=== PATIENT | male | born 1995 | race Two or more races ===

== ENCOUNTER 2018-03-25 10:41 | Emergency (ER) | payer SELFPAY ==
--- NOTE | 2018-03-25 11:00 | ER Report ---
History and Physical Time Seen By MD: 10:59 Hx. of Stated Complaint: PT REPORTS BILATERAL FLANK PAIN AND PAIN WITH URINATION THAT STARTED YESTERDAY HPI/ROS Chief Complaint: "back pain" HPI: 22-year-old Hungarian speaking male presents to the emergency department with complaints of back pain. Although the patient is the primary historian his brother translates for him. He reports the pain started yesterday and is a constant, stabbing pain. The patient reports it is made worse when he bares down. Reports that he stooled last this morning and voided a few minutes ago. He reports that he is sexually active but uses condoms every time. The patient states, he drank an old bottle of water that he found on the ground while working and wonders if it was contaminated. He reports associated nausea and states, he vomited once this morning. Last night he experienced feverish symptoms. He reports no changes in his diet but he has no appetite. No treatments tried. ROS: Constitutional: reports symptoms of fever and chills Head: denies headache ENMT: denies sinus congestion, denies sore throat Respiratory: denies difficulty breathing CV: denies chest pain GI: reports left upper quadrant pain, reports BL flank pain : denies pain with urination Allergies: Coded Allergies: No Known Drug Allergies (Unverified , 03/25/18) Home Meds Active Scripts Hydrocodone Bit/Acetaminophen (HYDROCODON-ACETAMINOPHEN 5-325) 1 Each Tablet, 1 EACH PO Q4-6H Y for PAIN, #8 TAB Prov:MELL VILLANUEVA 03/25/18 Ciprofloxacin Hcl (CIPROFLOXACIN HCL) 500 Mg Tablet, 500 MG PO Q12H for 7 Days, #14 TAB Prov:MELL VILLANUEVA 03/25/18 Past Medical/Surgical History Patient has no pertinent past medical history. Reviewed Nurses Notes: Yes Constitutional Vital Sign - Last 24 Hours 03/25/18 03/25/18 03/25/18 03/25/18 10:42 10:49 11:00 11:30 Temp 97.6 Pulse 65 Resp 16 B/P (MAP) 140/108 140/108 (119) 127/90 (102) 127/78 (94) Pulse Ox 97 O2 Delivery Room Air 03/25/18 03/25/18 03/25/18 03/25/18 11:49 12:00 12:11 12:30 Pulse 52 B/P (MAP) 122/76 (91) 131/77 (95) 114/83 (93) Pulse Ox 96 03/25/18 03/25/18 03/25/18 03/25/18 12:41 12:46 13:00 13:01 Pulse 72 46 57 B/P (MAP) 125/75 (92) Pulse Ox 90 96 99 03/25/18 13:06 Pulse 50 Pulse Ox 97 Intake and Output 03/25/18 03/25/18 03/26/18 14:59 22:59 06:59 Intake Total 1100 ml Balance 1100 ml Physical Exam General: 22-year-old male in no acute distress with pain and facial grimacing Head: normocephalic, atraumatic, TMs BL serge inman, ENMT: pupils round reactive to light and accommodation, no rhinorrhea, mucus membranes pink and moist Respiratory: CTA BL CV: Clear S1 S2, no murmurs : BL CVA tenderness GI: normoactive BS x4, left upper quadrant pain Musculoskeletal: free full ROM of all extremities Neuro: interactive, alert and oriented Differential Diagnoses Considered: kidney stone, UTI, STI, appendicitis Medical Decision Making Data Points Result Diagram: 03/25/18 1055 03/25/18 1055 Laboratory Hematology Test 03/25/18 10:41 03/25/18 10:55 Urine Color Straw Urine Clarity Clear Urine pH 6.0 pH (4.8-9.5) Urine Specific [place] 1.004 Urine Protein Negative mg/dL (NEGATIVE) Urine Glucose (UA) Negative mg/dL (NEGATIVE) Urine Ketones Negative mg/dL (NEGATIVE) Urine Blood Small (NEGATIVE) Urine Nitrite Negative (NEGATIVE) Urine Bilirubin Negative (NEGATIVE) Urine Urobilinogen Negative mg/dL (0.2-1.9) Urine Leukocyte Esterase Negative (NEGATIVE) Urine RBC <1 /HPF (0-2/HPF) Urine WBC <1 /HPF (0-5/HPF) Urine Squamous Epithelial Cells None /LPF (</=FEW) Urine Bacteria Few /HPF (NONE-FEW) Urine Mucus None /HPF (NONE-FEW) Red Blood Count 5.11 M/uL (4.00-5.60) Mean Corpuscular Volume 92.1 fL (80.0-96.0) Mean Corpuscular Hemoglobin 31.3 pg (26.0-33.0) Mean Corpuscular Hemoglobin Concent 34.0 g/dL (32.0-36.0) Red Cell Distribution Width 13.4 % (11.5-14.5) Mean Platelet Volume 9.2 fL (7.2-11.1) Neutrophils (%) (Auto) 60.0 % (39.4-72.5) Lymphocytes (%) (Auto) 26.4 % (17.6-49.6) Monocytes (%) (Auto) 11.4 % (4.1-12.4) Eosinophils (%) (Auto) 0.4 % (0.4-6.7) Basophils (%) (Auto) 1.8 % (0.3-1.4) Nucleated RBC Relative Count (auto) 0.0 /100WBC Neutrophils # (Auto) 3.9 K/uL (2.0-7.4) Lymphocytes # (Auto) 1.7 K/uL (1.3-3.6) Monocytes # (Auto) 0.7 K/uL (0.3-1.0) Eosinophils # (Auto) 0.0 K/uL (0.0-0.5) Basophils # (Auto) 0.1 K/uL (0.0-0.1) Nucleated RBC Absolute Count (auto) 0.00 K/uL Sodium Level 144 mmol/L (137-145) Potassium Level 3.9 mmol/L (3.5-5.0) Chloride Level 104 mmol/L (98-107) Carbon Dioxide Level 27 mmol/L (22-30) Blood Urea Nitrogen 18 mg/dl (9-21) Creatinine 1.00 mg/dl (0.66-1.25) Glomerular Filtration Rate Calc > 60.0 Random Glucose 98 mg/dl (75-110) Calcium Level 9.1 mg/dl (8.4-10.2) Total Bilirubin 0.9 mg/dl (0.2-1.3) Aspartate Amino Transf (AST/SGOT) 25 U/L (0-35) Alanine Aminotransferase (ALT/SGPT) 23 U/L (0-56) Alkaline Phosphatase 118 U/L (0-126) Total Protein 8.1 g/dl (6.3-8.2) Albumin 4.4 g/dl (3.5-5.0) Amylase Level 99 U/L (0-110) Lipase 61 U/L (23-300) Chemistry Test 03/25/18 10:41 03/25/18 10:55 Urine Color Straw Urine Clarity Clear Urine pH 6.0 pH (4.8-9.5) Urine Specific [place] 1.004 Urine Protein Negative mg/dL (NEGATIVE) Urine Glucose (UA) Negative mg/dL (NEGATIVE) Urine Ketones Negative mg/dL (NEGATIVE) Urine Blood Small (NEGATIVE) Urine Nitrite Negative (NEGATIVE) Urine Bilirubin Negative (NEGATIVE) Urine Urobilinogen Negative mg/dL (0.2-1.9) Urine Leukocyte Esterase Negative (NEGATIVE) Urine RBC <1 /HPF (0-2/HPF) Urine WBC <1 /HPF (0-5/HPF) Urine Squamous Epithelial Cells None /LPF (</=FEW) Urine Bacteria Few /HPF (NONE-FEW) Urine Mucus None /HPF (NONE-FEW) White Blood Count 6.5 k/uL (4.5-11.0) Red Blood Count 5.11 M/uL (4.00-5.60) Hemoglobin 16.0 g/dL (14.0-18.0) Hematocrit 47.1 % (42.0-52.0) Mean Corpuscular Volume 92.1 fL (80.0-96.0) Mean Corpuscular Hemoglobin 31.3 pg (26.0-33.0) Mean Corpuscular Hemoglobin Concent 34.0 g/dL (32.0-36.0) Red Cell Distribution Width 13.4 % (11.5-14.5) Platelet Count 191 K/uL (150-450) Mean Platelet Volume 9.2 fL (7.2-11.1) Neutrophils (%) (Auto) 60.0 % (39.4-72.5) Lymphocytes (%) (Auto) 26.4 % (17.6-49.6) Monocytes (%) (Auto) 11.4 % (4.1-12.4) Eosinophils (%) (Auto) 0.4 % (0.4-6.7) Basophils (%) (Auto) 1.8 % (0.3-1.4) Nucleated RBC Relative Count (auto) 0.0 /100WBC Neutrophils # (Auto) 3.9 K/uL (2.0-7.4) Lymphocytes # (Auto) 1.7 K/uL (1.3-3.6) Monocytes # (Auto) 0.7 K/uL (0.3-1.0) Eosinophils # (Auto) 0.0 K/uL (0.0-0.5) Basophils # (Auto) 0.1 K/uL (0.0-0.1) Nucleated RBC Absolute Count (auto) 0.00 K/uL Glomerular Filtration Rate Calc > 60.0 Calcium Level 9.1 mg/dl (8.4-10.2) Total Bilirubin 0.9 mg/dl (0.2-1.3) Aspartate Amino Transf (AST/SGOT) 25 U/L (0-35) Alanine Aminotransferase (ALT/SGPT) 23 U/L (0-56) Alkaline Phosphatase 118 U/L (0-126) Total Protein 8.1 g/dl (6.3-8.2) Albumin 4.4 g/dl (3.5-5.0) Amylase Level 99 U/L (0-110) Lipase 61 U/L (23-300) Urinalysis Test 03/25/18 10:41 Urine Color Straw Urine Clarity Clear Urine pH 6.0 pH (4.8-9.5) Urine Specific [place] 1.004 Urine Protein Negative mg/dL (NEGATIVE) Urine Glucose (UA) Negative mg/dL (NEGATIVE) Urine Ketones Negative mg/dL (NEGATIVE) Urine Blood Small (NEGATIVE) Urine Nitrite Negative (NEGATIVE) Urine Bilirubin Negative (NEGATIVE) Urine Urobilinogen Negative mg/dL (0.2-1.9) Urine Leukocyte Esterase Negative (NEGATIVE) Urine RBC <1 /HPF (0-2/HPF) Urine WBC <1 /HPF (0-5/HPF) Urine Squamous Epithelial Cells None /LPF (</=FEW) Urine Bacteria Few /HPF (NONE-FEW) Urine Mucus None /HPF (NONE-FEW) EKG/Imaging Imaging ABDOMEN/PELVIS WITH CONTRAST HISTORY: Abdomen pain TECHNIQUE: Following administration of IV contrast contiguous axial images acquired through the abdomen/pelvis. Coronal and sagittal reformatting also performed. Dose Lowering Technique One of the following dose optimization techniques was utilized in the performance of this exam: Automated exposure control; adjustment of the mA and/ or kV according to the patient's size; or use of an iterative reconstruction technique. Specific details can be referenced in the facility's radiology CT exam operational policy. CONTRAST: 75 mL Isovue-370 COMPARISON: None. FINDINGS: Visualized lung bases: Negative. Hepatobiliary: There is a vague subcentimeter hypodensity seen in the periphery of the inferior right lobe of the liver which may represent a perfusional variant although is too small to characterize. There is mild periportal edema which can be seen with IV hydration Spleen: Negative. Adrenals: Negative. Pancreas: Negative. Kidneys ureters or bladder: There are patchy segmental areas of hypoperfusion seen in both kidneys. There is no evidence of hydronephrosis or hydroureter. This could be related to perfusional variants although possibility of bilateral pyelonephritis would be included in the differential diagnosis Genitalia: Negative. GI: The appendix is visualized and does not appear inflamed. Vessels/spaces/nodes: Is a small amount of free pelvic fluid Bones/soft tissues: Negative. Additional findings: None pertinent. IMPRESSION: There are patchy segmental areas of hypoperfusion seen in both kidneys which could be related to perfusional variant although the differential diagnosis would include bilateral pyelonephritis. Correlation with symptoms and lab values needed Small amount of free pelvic fluid Report Dictated By: Zaynab Bedolla MD at 03/25/2018 12:02 PM Report E-Signed By: Zaynab Bedolla MD at 03/25/2018 12:10 PM ED Course/Re-evaluation ED Course Patient was bending exam room, history and physical were obtained. Differential diagnoses were considered. On examination patient did have bilateral CVA tenderness. A CBC, CMP, urinalysis were obtained. I results were unremarkable. A CT scan of the abdomen and pelvis was done. It did show possible developing pyelonephritis in both kidneys. With it being consistent with a history as well as the physical exam will ahead and treat the patient with antibiotics. We will have him increase fluid intake, get plenty of rest. He is return to emergency room if condition worsens. He is follow-up with his primary care provider in the next week. Patient verbalized understanding and agreement with plan. Decision to Disposition Date: Mar 25, 2018 Decision to Disposition Time: 13:15 Depart Departure Latest Vital Signs Vital Signs Date Time Temp Pulse Resp B/P (MAP) Pulse Ox O2 Delivery O2 Flow Rate FiO2 03/25/18 13:06 50 97 03/25/18 13:00 125/75 (92) 03/25/18 10:42 97.6 16 Room Air Impression: Primary Impression: Pyelonephritis Condition: Improved Disposition: HOME OR SELF-CARE New Scripts Hydrocodone Bit/Acetaminophen (HYDROCODON-ACETAMINOPHEN 5-325) 1 Each Tablet 1 EACH PO Q4-6H Y for PAIN, #8 TAB Prov: MELL VILLANUEVA 03/25/18 Ciprofloxacin Hcl (CIPROFLOXACIN HCL) 500 Mg Tablet 500 MG PO Q12H for 7 Days, #14 TAB Prov: MELL VILLANUEVA 03/25/18 Patient Instructions: Urinary Tract Infection in Men (ED) Additional Instructions: Return to the emergency department if your condition worsens. We will call you if we need to change your antibiotic. Seek medical attention if your condition does not improve within 3 to 5 days. Take antibiotics once in the morning and once at night for 7 days. Follow up with your primary care provider within the next week. MELL VILLANUEVA Mar 25, 2018 10:59
[2018-03-25] MEDS ORDERED: NS(*) 0.9% 1000 ML BAG 1,000 ML IV ONE (11:20)
[2018-03-25 11:27] LABS: PLATELET COUNT, AUTOMATED 191 K/uL (150-450)
[2018-03-25] MEDS ORDERED: MORPHINE 4 MG/ML SDV IVP ONE (11:30)
[2018-03-25] MEDS ORDERED: IOPAMIDOL 76% 75 ML INFUS BTL 75 ML ONE (11:32)
--- NOTE | 2018-03-25 12:15 | RADIOLOGY IMAGING REPORT ---
FACILITY: [facility] PATIENT NAME: Heri Rasmussen : 1995 MR: [id number] V: [id number] EXAM DATE: ORDERING PHYSICIAN: MELL VILLANUEVA TECHNOLOGIST: Location: [facility] Patient: Heri Sandhu : 1995 Visit/Account:[id number] Date of Sevice: 03/25/2018 ABDOMEN/PELVIS WITH CONTRAST HISTORY: Abdomen pain TECHNIQUE: Following administration of IV contrast contiguous axial images acquired through the abdom en/pelvis. Coronal and sagittal reformatting also performed. Dose Lowering Technique One of the following dose optimization techniques was utilized in the performance of this exam: Autom ated exposure control; adjustment of the mA and/or kV according to the patient's size; or use of an i terative reconstruction technique. Specific details can be referenced in the facility's radiology C T exam operational policy. CONTRAST: 75 mL Isovue-370 COMPARISON: None. FINDINGS: Visualized lung bases: Negative. Hepatobiliary: There is a vague subcentimeter hypodensity seen in the periphery of the inferior righ t lobe of the liver which may represent a perfusional variant although is too small to characterize. There is mild periportal edema which can be seen with IV hydration Spleen: Negative. Adrenals: Negative. Pancreas: Negative. Kidneys ureters or bladder: There are patchy segmental areas of hypoperfusion seen in both kidneys. There is no evidence of hydronephrosis or hydroureter. This could be related to perfusional variants although possibility of bilateral pyelonephritis would be included in the differential diagnosis Genitalia: Negative. GI: The appendix is visualized and does not appear inflamed. Vessels/spaces/nodes: Is a small amount of free pelvic fluid Bones/soft tissues: Negative. Additional findings: None pertinent. IMPRESSION: There are patchy segmental areas of hypoperfusion seen in both kidneys which could be related to perf usional variant although the differential diagnosis would include bilateral pyelonephritis. Correlat ion with symptoms and lab values needed Small amount of free pelvic fluid Report Dictated By: Zaynab Bedolla MD at 03/25/2018 12:02 PM Report E-Signed By: Zaynab Bedolla MD at 03/25/2018 12:10 PM WSN:[email or web address]
[2018-03-25] MEDS ORDERED: CIPR-214 PO (12:52)
[2018-03-25 13:00] VITALS: BP 125/75
[2018-03-25] MEDS ORDERED: HYDR-385 PO (13:04)
[2018-03-25] MEDS ORDERED: cefTRIAXone(*) 1 GM VIAL 1 GM in NS(*) 0.9% 100 ML ADDVANT BAG 100 ML IVPB ONE (13:05)
== END 2018-03-25 13:42 | disposition home or self-care (01) ==
LOC: ER 10:56
DX: N12 Tubulo-interstitial nephritis, not specified as acute or chronic (principal)
CPT/HCPCS: 74177; 81001; 82150; 83690; 85025; 96361; 96365; 96375; 99284; J0696; J2270; J7030; J7050; Q9967; 82040; 82247; 82310; 82374; 82435; 82565; 82947; 84075; 84132; 84155; 84295; 84450; 84460; 84520